=== PATIENT | male | born 1985 | race African-American/Black ===

== ENCOUNTER 2018-02-11 09:15 | Emergency (ER) | payer OTHER ==
[~2018-02-11] VITALS: Ht 170.2 cm; Wt 74.8 kg
[2018-02-11 09:25] VITALS: BP 117/72
== END 2018-02-11 10:35 | disposition home or self-care (01) ==
LOC: ER 09:15
DX: S09.90XA Unspecified injury of head, initial encounter (principal); S01.531A Puncture wound without foreign body of lip, initial encounter; Z88.0 Allergy status to penicillin; Y08.89XA Assault by other specified means, initial encounter; Y93.89 Activity, other specified; Y99.8 Other external cause status; Y92.218 Other school as the place of occurrence of the external cause
CPT/HCPCS: 70450